=== PATIENT | female | born 1980 | race Asian ===

== ENCOUNTER → 2021-08-03 | Outpatient (CLI) | payer OTHER | LOC: VACCPMC 12:00 | DX: Z23 Encounter for immunization (principal); Z20.822 Contact with and (suspected) exposure to COVID-19 ==

== ENCOUNTER → 2023-01-05 | Day surgery (SDC) | payer BC ==
[~2023-01-05] MED LIST: LIDOCAINE HCL 2% LOCAL INJ 5 ML SDV VIAL INJ ONE; METOCLOPRAMIDE HCL 10 MG/2ML VIAL ONE; MIDAZOLAM HCL 2 MG/2 ML VIAL ONE; OMEPRAZOLE40 MG PO; OZEMPIC0.25 MG/0. SC; POVIDONE IODINE 0.05% 0.05 % ML PO ONE; PROPOFOL IV EMULSION 10 MG/ML 20 ML VIAL ONE; ZAFEMY 150-351 EACH TD
[2023-01-05 08:10] VITALS: BP 103/70
== END | disposition home or self-care (01) ==
LOC: ENDO 06:15
PROVIDERS: ATTEND Internal Medicine Gastroenterology
DX: K21.9 Gastro-esophageal reflux disease without esophagitis (principal); K29.50 Unspecified chronic gastritis without bleeding; B96.81 Helicobacter pylori [H. pylori] as the cause of diseases classified elsewhere; K20.90 Esophagitis, unspecified without bleeding; K44.9 Diaphragmatic hernia without obstruction or gangrene; Z79.85 Long-term (current) use of injectable non-insulin antidiabetic drugs
CPT/HCPCS: 43239; 43450; 81025; C9113; J2001; J2250; J2704; J2765

== ENCOUNTER → 2023-09-06 | Day surgery (SDC) | payer BC ==
[~2023-09-06] MED LIST changes: +EPHEDRINE SULFATE INJ 50 MG/ML VIAL ONE; +LACTATED RINGER'S 1,000 ML ONE; -METOCLOPRAMIDE HCL 10 MG/2ML VIAL ONE; -MIDAZOLAM HCL 2 MG/2 ML VIAL ONE; -POVIDONE IODINE 0.05% 0.05 % ML PO ONE; +PROPOFOL IV EMULSION 10 MG/ML 50 ML VIAL IV ONE
[2023-09-06 07:47] VITALS: TEMP 98
[2023-09-06 08:00] VITALS: BP 98/65; PULSE 74; RESP 17; O2SAT 100
== END | disposition home or self-care (01) ==
LOC: OR 05:32
PROVIDERS: ATTEND Internal Medicine Gastroenterology
DX: K63.5 Polyp of colon (principal); K64.8 Other hemorrhoids; K59.00 Constipation, unspecified; K21.9 Gastro-esophageal reflux disease without esophagitis; Z79.899 Other long term (current) drug therapy
CPT/HCPCS: 36415; 45385; 81025; 84443; J2001; J2704 ×2; J7121; 45378